=== PATIENT | female | born 1960 ===

== ENCOUNTER 2024-12-18 11:06 | Inpatient (IN) | payer OTHER ==
[~2024-12-18] VITALS: Ht 160 cm; Wt 65.3 kg
[2024-12-25] MEDS ORDERED: METRONIDAZOLE/SODIUM CHLORIDE 500 MG/100 ML PIGGYBACK IV ONE ×2 (07:35→17:17)
[2024-12-25] MEDS ORDERED: CEFTRIAXONE SODIUM 2,000 MG VIAL ONE (07:35)
[2024-12-25] MEDS ORDERED: OxyCODONE HCL 5 MG TABLET (ROXICODONE) PO PRN (10:45)
[2024-12-25] MEDS ORDERED: ONDANSETRON HCL 2 MG/ML VIAL IV PRN (10:45)
[2024-12-25] MEDS ORDERED: DEXTROSE 50 % IN WATER 0.5 G/ML DISP.SYRIN IV PRN (10:45)
[2024-12-25] MEDS ORDERED: MORPHINE SULFATE 4 MG/ML CARTRIDGE IV PRN (10:45)
[2024-12-25] MEDS ORDERED: 0.9 % SODIUM CHLORIDE 1,000 ML IV SCH (10:45)
[2024-12-25 12:36] LABS: BASO % 0.2 % (0.1-1.2); EOS # 0.01 (0.04-0.54); EOS % 0.1 % (0.7-7.0); HEMATOCRIT 35.9 % (34.1-44.9); HEMOGLOBIN 12.1 g/dL (11.2-15.7); LYMPH # 1.61 (1.18-3.74); MONO # 0.44 (0.24-0.82); MONO % 4.1 % (4.7-12.5); NEUT # 8.63 (1.56-6.13); NEUT % 80.3 % (34.0-71.1); PLATELET COUNT 258 K/uL (163-369); RED CELL DISTRIBUTION WIDTH 13.2 % (11.6-14.4)
[2024-12-25] MEDS ORDERED: HYOSCYAMINE SULFATE 0.125 MG TAB.SUBL SL SCH (13:00)
[2024-12-25 13:17] LABS: ALBUMIN 3.4 gm/dL (3.4-5.0); CALCIUM 9.1 mg/dL (8.5-10.1); CREATININE SERUM 0.75 mg/dL (0.55-1.02); GFR 77.8; PHOSPHOROUS 3.2 mg/dL (2.5-4.9); POTASSIUM 4.27 mEq/L (3.5-5.1)
[2024-12-25] MEDS ORDERED: ACETAMINOPHEN 500 MG GEL..CAP PO SCH (14:00)
[2024-12-25] MEDS ORDERED: POLYETHYLENE GLYCOL 3350 17 GM BLIST.PACK PO SCH (17:00)
[2024-12-25] MEDS ORDERED: METRONIDAZOLE/SODIUM CHLORIDE 500 MG/100 ML PIGGYBACK IV SCH (17:00)
[2024-12-25] MEDS ORDERED: GABAPENTIN 300 MG CAPSULE PO SCH (17:00)
[2024-12-25] MEDS ORDERED: ACETAMINOPHEN 500 MG GEL..CAP PO ONE (17:17)
[2024-12-25] MEDS ORDERED: GABAPENTIN 300 MG CAPSULE PO ONE (17:17)
[2024-12-25 18:30] VITALS: BP 155/66; O2SAT 97
[2024-12-25] MEDS ORDERED: FAMOTIDINE/PF 20 MG/2 ML VIAL IV PUSH SCH (21:00)
[2024-12-25] MEDS ORDERED: CELECOXIB 200 MG CAPSULE PO SCH (21:00)
[2024-12-26 00:37] VITALS: BP 145/70; O2SAT 97
[2024-12-26 07:40] LABS: BASO % 0.2 % (0.1-1.2); EOS # 0.02 (0.04-0.54); EOS % 0.2 % (0.7-7.0); HEMATOCRIT 36.9 % (34.1-44.9); HEMOGLOBIN 12.4 g/dL (11.2-15.7); LYMPH # 2.85 (1.18-3.74); LYMPH % 22.9 % (19.3-53.1); MEAN CORPUSCULAR HEMOGLOBIN 30.8 pg (25.6-32.2); MONO # 1.02 (0.24-0.82); MONO % 8.2 % (4.7-12.5); NEUT # 8.48 (1.56-6.13); NEUT % 68.3 % (34.0-71.1); PLATELET COUNT 232 K/uL (163-369); RED BLOOD COUNT 4.03 M/uL (3.93-5.22); RED CELL DISTRIBUTION WIDTH 13.2 % (11.6-14.4)
[2024-12-26 08:25] LABS: ALBUMIN 3.3 gm/dL (3.4-5.0); CALCIUM 8.8 mg/dL (8.5-10.1); CREATININE SERUM 0.65 mg/dL (0.55-1.02); GFR 91.76; PHOSPHOROUS 3.2 mg/dL (2.5-4.9); POTASSIUM 4.17 mEq/L (3.5-5.1)
[2024-12-26 08:57] VITALS: BP 141/71; O2SAT 97
[2024-12-26 14:00] VITALS: BP 123/61; O2SAT 98
[2024-12-26] MEDS ORDERED: ENOXAPARIN SODIUM 40 MG/0.4 ML SYRINGE SUBCUTANEO SCH (17:00)
[2024-12-27 00:28] VITALS: BP 132/72; O2SAT 95
[2024-12-27 07:33] LABS: BASO % 0.4 % (0.1-1.2); EOS # 0.16 (0.04-0.54); EOS % 1.9 % (0.7-7.0); HEMATOCRIT 33.7 % (34.1-44.9); HEMOGLOBIN 11.2 g/dL (11.2-15.7); LYMPH # 1.85 (1.18-3.74); MEAN CORPUSCULAR HEMOGLOBIN 30.9 pg (25.6-32.2); MONO % 8.3 % (4.7-12.5); NEUT # 5.64 (1.56-6.13); NEUT % 67.2 % (34.0-71.1); PLATELET COUNT 225 K/uL (163-369); RED BLOOD COUNT 3.62 M/uL (3.93-5.22); RED CELL DISTRIBUTION WIDTH 13.3 % (11.6-14.4)
[2024-12-27 08:00] VITALS: BP 171/76; O2SAT 98
[2024-12-27 08:23] LABS: CALCIUM 8.7 mg/dL (8.5-10.1); CREATININE SERUM 0.71 mg/dL (0.55-1.02); GFR 82.88; MAGNESIUM 2.2 mg/dL (1.8-2.4); POTASSIUM 4.57 mEq/L (3.5-5.1)
[2024-12-27 08:41] LABS: PHOSPHOROUS 1.9 mg/dL (2.5-4.9)
[2024-12-27] MEDS ORDERED: ENOXAPARIN SODIUM 40 MG/0.4 ML SYRINGE SUBCUTANEO SCH (09:00)
[2024-12-27] MEDS ORDERED: POTASSIUM PHOS,M-BASIC-D-BASIC 15 MM in 0.9 % SODIUM CHLORIDE 250 ML IV NR (12:00)
[2024-12-27] MEDS ORDERED: SODIUM CHLORIDE 0.45 % 1,000 ML IV SCH (12:15)
[2024-12-27 16:34] VITALS: BP 155/64; O2SAT 98
[2024-12-27] MEDS ORDERED: ENALAPRILAT DIHYDRATE 1.25 MG/ML VIAL IV PRN (19:00)
[2024-12-28 00:30] VITALS: BP 124/64; O2SAT 98
[2024-12-28 08:00] VITALS: BP 160/69; O2SAT 98
[2024-12-28] MEDS ORDERED: HYOSCYAMINE0.125 M1 SL (09:39)
[2024-12-28] MEDS ORDERED: TRAM1TAB98 PO (09:39)
[2024-12-28] MEDS ORDERED: PEPCID AC20 MG PO (09:39)
== END 2024-12-28 16:30 | disposition home or self-care (01) | DRG 331 ==
LOC: O/R 12-25 08:26 → SURH 12-25 10:00
PROVIDERS: Internal Medicine Geriatric Medicine; ADMIT Surgery; ATTEND Surgery
PROC: 0DTN4ZZ Resection of Sigmoid Colon, Percutaneous Endoscopic Approach (ICD-10-PCS; 2024-12-25)
PROC: 0DJD8ZZ Inspection of Lower Intestinal Tract, Via Natural or Artificial Opening Endoscopic (ICD-10-PCS; 2024-12-25)
PROC: 0DBP4ZZ Excision of Rectum, Percutaneous Endoscopic Approach (ICD-10-PCS; principal; 2024-12-25 10:00)
DX: K57.20 Diverticulitis of large intestine with perforation and abscess without bleeding (principal); R10.32 Left lower quadrant pain; R19.4 Change in bowel habit

== ENCOUNTER 2025-01-29 12:42 | Inpatient (IN) | payer OTHER ==
[~2025-01-29] VITALS: Ht 167.6 cm; Wt 72.6 kg
[~2025-01-29 12:42] MED LIST: HYOSCYAMINE0.125 M1 SL; PEPCID AC20 MG PO; TRAM1TAB98 PO
[2025-01-29] MEDS ORDERED: 0.9 % SODIUM CHLORIDE 1,000 ML IV STA (12:57)
--- NOTE | 2025-01-29 13:05 | NUR ---
PACIENTE ALERTA Y ORIENTADA X3 TRAIDA EN [facility]AMEDIC[facility]. REFIERE COMENZAR CON [facility] [facility]. SE DUNCAN S/V Y SE UBICA.
[2025-01-29 13:58] LABS: BASO % 0.4 % (0.1-1.2); EOS # 0.14 (0.04-0.54); EOS % 1.7 % (0.7-7.0); LYMPH # 2.53 (1.18-3.74); LYMPH % 31.5 % (19.3-53.1); MEAN PLATELET VOLUME 11.60 fl (9.4-12.4); MONO # 0.50 (0.24-0.82); MONO % 6.2 % (4.7-12.5); NEUT # 4.83 (1.56-6.13); NEUT % 60.1 % (34.0-71.1); RED CELL DISTRIBUTION WIDTH 13.6 % (11.6-14.4)
[2025-01-29 14:18] LABS: BUN CREA RATIO 13.0 (7.0-25.0); CREATININE SERUM 0.77 mg/dL (0.55-1.02); GFR 75.23; GLUCOSE FASTING 86.0 mg/dL (65-100); OSMOLALITY SERUM 280.0 MOSM/KG (275-295)
--- NOTE | 2025-01-29 14:35 | NUR ---
PTE EVALUADO POR DR. HAIRSTON, PRESENTANDO [place] [facility]CT[facility]. SE COLECTAN MUESTRAS DE [place] BA[place] MEDIDAS ASEPTICAS Y SE CANALIZA EN BRAZO DERECHO CON IVF PATENTE Y PRAKASH DE EDEMA. SE ORIENTA AL PTE Y FAMILIAR SOBRE PROCEDIMIENTOS REALIZADOS Y PROCESO DE RE-EVALUACION MEDICA. CLIENTE ALERTA Y ORIENTADO AL MOMENTO DE LA INTERVENCION POR RN.
[2025-01-29 15:00] LABS: INR 1.05
[2025-01-29 16:54] LABS: URINE APPEARANCE Clear; URINE BILIRRUBIN Negative (NEGATIVE); URINE BLOOD NHT; URINE COLOR Yellow; URINE GLUCOSE Negative (NEGATIVE); URINE KETONE 15 (NEGATIVE); URINE LEUKOCYTE Moderate; URINE NITRATE Negative; URINE PROTEIN Negative (NEGATIVE); URINE UROBILINOGEN 0.2 E.U./dl
[2025-01-29 16:57] LABS: URINE BACTERIA 494.3 uL (0.0-1933); URINE EPITHELIAL CELLS 42.1 uL (0.0-38.8); URINE RBC 3.0 uL (0.0-20.8); URINE WBC 78.6 uL (0.0-23.2)
[2025-01-29 17:34] LABS: URINE CAST 0.43 uL (0.0-1.40)
[2025-01-29 17:35] LABS: TYPE CELLS SQUAMOUS
[2025-01-29] MEDS ORDERED: PANTOPRAZOLE SODIUM 40 MG in 0.9 % SODIUM CHLORIDE 8 ML IV PUSH STA (18:14)
[2025-01-29] MEDS ORDERED: METRONIDAZOLE/SODIUM CHLORIDE 500 MG/100 ML PIGGYBACK IV ONE (18:15)
[2025-01-29] MEDS ORDERED: CIPROFLOXACIN IN 5 % DEXTROSE 400 MG/200 ML PIGGYBAG IV ONE (18:15)
[2025-01-29] MEDS ORDERED: CIPROFLOXACIN IN 5 % DEXTROSE 200 ML IV SCH (21:56)
[2025-01-29] MEDS ORDERED: 0.9 % SODIUM CHLORIDE 1,000 ML IV SCH (22:00)
[2025-01-29] MEDS ORDERED: ONDANSETRON HCL 4 MG in 0.9 % SODIUM CHLORIDE 50 ML IV PRN (22:00)
[2025-01-29] MEDS ORDERED: ACETAMINOPHEN 500 MG GEL..CAP PO PRN (22:00)
[2025-01-29] MEDS ORDERED: MORPHINE SULFATE 4 MG/ML CARTRIDGE IV PRN (22:00)
[2025-01-30 03:38] VITALS: BP 143/73; O2SAT 99
[2025-01-30 08:00] VITALS: BP 153/74; O2SAT 97
[2025-01-30] MEDS ORDERED: FAMOTIDINE/PF 20 MG in 0.9 % SODIUM CHLORIDE 8 ML IV PUSH SCH (09:00)
[2025-01-30 16:03] VITALS: BP 130/67; O2SAT 98
[2025-01-30 21:38] LABS: FECAL LEUKOCYTES NEGATIVE (NEGATIVE); ob POSITIVE (NEGATIVE)
[2025-01-31] VITALS: BP 147/69; O2SAT 98
[2025-01-31 06:50] LABS: BASO % 0.5 % (0.1-1.2); EOS # 0.32 (0.04-0.54); EOS % 5.6 % (0.7-7.0); LYMPH # 1.72 (1.18-3.74); LYMPH % 30.1 % (19.3-53.1); MEAN PLATELET VOLUME 12.10 fl (9.4-12.4); MONO # 0.55 (0.24-0.82); MONO % 9.6 % (4.7-12.5); NEUT # 3.09 (1.56-6.13); NEUT % 54.0 % (34.0-71.1); RED CELL DISTRIBUTION WIDTH 13.3 % (11.6-14.4)
[2025-01-31 07:18] LABS: ALT/SGPT 21.0 U/L (12-78); AST/SGOT 15.0 U/L (15-37); BILIRUBIN TOTAL 0.64 mg/dL (0.3-1.2); BUN CREA RATIO 16.0 (7.0-25.0); CREATININE SERUM 0.63 mg/dL (0.55-1.02); GFR 94.84; GLOBULINA 2.9 G/DL (2.4-3.5); GLUCOSE FASTING 83.0 mg/dL (65-100); OSMOLALITY SERUM 283.0 MOSM/KG (275-295)
[2025-01-31 08:00] VITALS: BP 139/75; O2SAT 98
[2025-02-01 00:09] VITALS: BP 128/52; O2SAT 98
[2025-02-01 08:15] VITALS: BP 139/68; O2SAT 98
[2025-02-01 15:30] VITALS: BP 173/75; O2SAT 97
[2025-02-01] MEDS ORDERED: ENALAPRILAT DIHYDRATE 1.25 MG/ML VIAL IV PRN (16:45)
[2025-02-01] MEDS ORDERED: AMINO ACIDS/PROTEIN HYDROLYS 30 ML BLIST.PACK PO SCH (17:00)
[2025-02-01] MEDS ORDERED: CHOLESTYRAMINE/ASPARTAME LIGHT 4 G/PKT PACKET PO SCH (17:00)
[2025-02-01] MEDS ORDERED: FAMOTIDINE/PF 20 MG in 0.9 % SODIUM CHLORIDE 8 ML IV PUSH SCH (21:00)
[2025-02-01 21:07] LABS: GIARDIA LAMBLIA EIA Negative (Negative)
[2025-02-02 01:21] VITALS: BP 125/72; O2SAT 98
[2025-02-02 08:00] VITALS: BP 157/74; O2SAT 99
[2025-02-02] MEDS ORDERED: ENOXAPARIN SODIUM 40 MG/0.4 ML SYRINGE SUBCUTANEO SCH (09:00)
[2025-02-02 16:49] LABS: BASO % 0.5 % (0.1-1.2); EOS # 0.22 (0.04-0.54); EOS % 3.9 % (0.7-7.0); LYMPH # 2.00 (1.18-3.74); LYMPH % 35.8 % (19.3-53.1); MEAN PLATELET VOLUME 12.10 fl (9.4-12.4); MONO # 0.68 (0.24-0.82); NEUT # 2.64 (1.56-6.13); NEUT % 47.4 % (34.0-71.1); RED CELL DISTRIBUTION WIDTH 13.7 % (11.6-14.4)
[2025-02-02 16:50] LABS: MONO % 12.2 % (4.7-12.5)
[2025-02-02 17:29] LABS: BUN CREA RATIO 13.0 (7.0-25.0); CREATININE SERUM 0.7 mg/dL (0.55-1.02); GFR 83.98; GLUCOSE FASTING 83.0 mg/dL (65-100); OSMOLALITY SERUM 287.0 MOSM/KG (275-295)
[2025-02-02 17:41] VITALS: BP 156/73; O2SAT 97
[2025-02-03 00:33] VITALS: BP 150/68; O2SAT 98
[2025-02-03 10:11] VITALS: BP 168/94; O2SAT 98
[2025-02-03 10:16] VITALS: BP 132/64
[2025-02-03] MEDS ORDERED: CIPRO500 MG PO (14:12)
[2025-02-03] MEDS ORDERED: METRONIDAZOLE500 MG PO (14:13)
[2025-02-03] MEDS ORDERED: INTESTINEX680 M1 PO (14:13)
[2025-02-03] MEDS ORDERED: HYOSCYAMINE0.125 M1 SL (14:14)
[2025-02-04 11:07] LABS: campy Final report (.)
== END 2025-02-03 15:34 | disposition home or self-care (01) | DRG 392 ==
LOC: ER 12:42 → SURG 22:06
PROVIDERS: Emergency Medicine; General Practice; Internal Medicine Geriatric Medicine; Internal Medicine Infectious Disease; ADMIT Surgery; ATTEND Surgery
DX: K52.89 Other specified noninfective gastroenteritis and colitis (principal); K62.5 Hemorrhage of anus and rectum; N39.0 Urinary tract infection, site not specified